=== PATIENT | male | born 1955 | race Caucasian/White ===

== ENCOUNTER 2024-04-21 11:09 | Inpatient (IN) | payer MEDICARE ==
[~2024-04-21] VITALS: Ht 190.5 cm; Wt 85.3 kg
[2024-04-21 11:18] VITALS: BP_SYST 178; PULSE 92; RESP 19; TEMP 97.9; O2SAT 97
[2024-04-21] MEDS: LORazepam 2 MG/ML VIAL IM ONE (11:37)
[2024-04-21] MEDS: HALOPERIDOL LACTATE 5 MG/ML VIAL IM ONE (11:38)
[2024-04-21] MEDS: DIPHENHYDRAMINE INJ 50 MG/ML VIAL IM ONE (11:38)
[2024-04-21 13:26] LABS: BASOPHILS % (AUTO) 0.4 % (0.0-2.0); EOSINOPHILS % (AUTO) 0.3 % (0.0-4.0); HEMATOCRIT 42.4 % (36-54); HEMOGLOBIN 14.6 g/dL (14.0-18.0); LYMPHOCYTES # (AUTO) 0.8 K/uL (1.0-5.5); LYMPHOCYTES % (AUTO) 7.9 % (20.5-51.5); MEAN CORPUSCULAR HEMOGLOBIN 30 pg (27-31); MEAN CORPUSCULAR HGB CONC 34 % (32-36); MEAN CORPUSCULAR VOLUME 87 fL (79.0-98.0); MONOCYTES # (AUTO) 0.8 K/uL (0.0-1.0); MONOCYTES % (AUTO) 8.1 % (1.7-9.3); NEUTROPHILS # (AUTO) 8.1 K/uL (1.8-7.7); NEUTROPHILS % (AUTO) 83.3 % (40.0-70.0); PLATELET COUNT (AUTO) 247 K/uL (130-430); RED CELL DISTRIBUTION WIDTH 13.6 % (9.0-15.0); WHITE BLOOD COUNT (AUTO) 9.7 K/uL (4.8-10.8)
[2024-04-21 13:39] LABS: ALANINE AMINOTRANSFERASE 21 U/L (12-78); ALBUMIN 3.9 g/dL (3.4-4.8); ANION GAP 12 (5-15); ASPARTATE AMINOTRANSFERASE 13 U/L (10-37); BILIRUBIN,DIRECT 0.2 mg/dL (0.0-0.3); CALCIUM 9.5 mg/dL (8.4-11.0); CARBON DIOXIDE 27 mmol/L (23-29); CHLORIDE 101 mmol/L (98-107); CREATININE 0.99 mg/dL (0.55-1.30); GFR AFRICAN AMERICAN 96 mL/min (>90); GLUCOSE 102 mg/dL (74-106); POTASSIUM 3.5 mmol/L (3.5-5.1); SODIUM SERUM 140 mmol/L (136-145); TOTAL BILIRUBIN 0.5 mg/dL (0.0-1.0); TOTAL PROTEIN, SERUM 7.5 g/dL (6.4-8.3); UREA NITROGEN, BLOOD 14 mg/dL (8-21)
[2024-04-21 13:41] LABS: GFR NON AFRICAN-AMERICAN 80 mL/min (>90)
[2024-04-21 13:42] LABS: ALCOHOL, BLOOD < 3 mg/dL (<10)
[2024-04-21] MEDS ORDERED: LEVO25TA7 PO (14:52)
[2024-04-21] MEDS ORDERED: LEVO200T8 PO (14:52)
[2024-04-21] MEDS ORDERED: ABIR250T2 PO (14:52)
[2024-04-21] MEDS ORDERED: PRED5TAB PO (14:52)
[2024-04-21 14:57] LABS: BARBITURATE, URINE NEGATIVE (NEG <=200); BENZODIAZEPINE, URINE NEGATIVE (NEG <=150); CANNABINOID, URINE POSITIVE (NEG <=50); COCAINE, URINE NEGATIVE (NEG <=150); METHAMPHETAMINES SCREEN,URINE NEGATIVE (NEG <=500); OPIATE, URINE NEGATIVE (NEG <=100); PHENCYCLIDINE SCREEN,URINE NEGATIVE (NEG <=25); UR TRICYCLIC ANTIDEPRESSANTS NEGATIVE (NEG <=300); URINE AMPHETAMINE NEGATIVE (NEG <=500); URINE METHADONE NEGATIVE (NEG <=200); URINE OXYCODONE SCREEN NEGATIVE (NEG <=100)
[2024-04-21 14:59] LABS: BILIRUBIN,URINE 2+ (NEGATIVE); CLARITY/URINE HAZY (CLEAR); COLOR,URINE YELLOW (YELLOW); GLUCOSE,URINE NEGATIVE (NEGATIVE); KETONES,URINE 2+ (NEGATIVE); PROTEIN URINE 2+ (NEGATIVE)
[2024-04-21 15:00] LABS: BACTERIA,URINE None Seen /HPF (None Seen); BLOOD, URINE NEGATIVE (NEGATIVE); LEUKOCYTE ESTERASE ,URINE NEGATIVE (NEGATIVE); NITRITE, URINE NEGATIVE (NEGATIVE); RBC,URINE NONE SEEN /HPF (0-3); WBC,URINE NONE SEEN /HPF (0-3)
[2024-04-21 15:01] LABS: CALCIUM OXALATE CRYSTALS,UR 0-10 /HPF (None Seen); HYALINE CASTS, URINE 0-10 /LPF (None Seen); MUCUS,URINE 3+ /LPF (None Seen)
[2024-04-21] MEDS ORDERED: LORazepam 2 MG/ML VIAL IVP PRN (18:45)
[2024-04-21] MEDS ORDERED: ONDANSETRON HCL 4 MG/2 ML VIAL IVP PRN (18:45)
[2024-04-21] MEDS ORDERED: ACETAMINOPHEN 325 MG TABLET PO PRN (18:45)
[2024-04-21] MEDS ORDERED: HYDROcodone/ACETAMIN 5-325 MG TAB (NORCO/ VICODIN) PO PRN (18:45)
[2024-04-21] MEDS ORDERED: HYDROcodone/ACETAMIN 10-325 MG TAB PO PRN (18:45)
[2024-04-21] MEDS ORDERED: ZOLPIDEM TARTRATE 5 MG TABLET PO PRN (21:00)
[2024-04-21 21:58] VITALS: BP_SYST 141; PULSE 61; RESP 18; TEMP 97.7
[2024-04-21 22:39] VITALS: O2SAT 98
[2024-04-22 01:30] VITALS: BP_SYST 134; PULSE 74; RESP 19; TEMP 97.6; O2SAT 97
[2024-04-22] MEDS: LEVOTHYROXINE SODIUM 0.1 MG TABLET PO SCH (06:14)
[2024-04-22 06:58] LABS: BASOPHILS # (AUTO) 0.1 K/uL (0.0-0.2); BASOPHILS % (AUTO) 1.1 % (0.0-2.0); EOSINOPHILS # (AUTO) 0.1 K/uL (0.0-0.4); EOSINOPHILS % (AUTO) 2.1 % (0.0-4.0); HEMATOCRIT 39.5 % (36-54); HEMOGLOBIN 13.6 g/dL (14.0-18.0); LYMPHOCYTES # (AUTO) 1.2 K/uL (1.0-5.5); LYMPHOCYTES % (AUTO) 21.8 % (20.5-51.5); MEAN CORPUSCULAR HEMOGLOBIN 30 pg (27-31); MEAN CORPUSCULAR HGB CONC 35 % (32-36); MEAN CORPUSCULAR VOLUME 86 fL (79.0-98.0); MONOCYTES # (AUTO) 0.7 K/uL (0.0-1.0); MONOCYTES % (AUTO) 12.3 % (1.7-9.3); NEUTROPHILS # (AUTO) 3.4 K/uL (1.8-7.7); NEUTROPHILS % (AUTO) 62.7 % (40.0-70.0); PLATELET COUNT (AUTO) 230 K/uL (130-430); RED BLOOD CELL COUNT(AUTO) 4.59 MIL/uL (4.2-6.2); RED CELL DISTRIBUTION WIDTH 13.5 % (9.0-15.0); WHITE BLOOD COUNT (AUTO) 5.4 K/uL (4.8-10.8)
[2024-04-22 07:41] LABS: CALCIUM 9.1 mg/dL (8.4-11.0); CREATININE 1.08 mg/dL (0.55-1.30); POTASSIUM 3.9 mmol/L (3.5-5.1)
[2024-04-22 08:00] VITALS: BP_SYST 134; PULSE 82; RESP 12; TEMP 97.9; O2SAT 97
[2024-04-22] MEDS: HEPARIN SODIUM,PORCINE 5,000 UNITS/ML VIAL SUBCUT SCH (08:41)
[2024-04-22 12:57] VITALS: BP_SYST 147; PULSE 75; RESP 18; TEMP 98.3; O2SAT 100
[2024-04-22 16:57] VITALS: BP_SYST 169; PULSE 70; RESP 16; TEMP 98.7; O2SAT 99
[2024-04-22] MEDS: hydrALAZINE HCL 25 MG TABLET PO ONE (17:44)
[2024-04-22] MEDS: predniSONE 5 MG TABLET PO STA (17:44)
[2024-04-22] MEDS: predniSONE 5 MG TABLET ONE (17:46)
[2024-04-22 18:43] VITALS: BP_SYST 157; PULSE 71; RESP 16; TEMP 98.1; O2SAT 100
[2024-04-22] MEDS ORDERED: hydrALAZINE HCL 25 MG TABLET PO PRN (20:15)
== END 2024-04-22 19:30 | disposition short-term general hospital (02) | DRG 71 ==
LOC: SED 11:09 → SMU 18:42
PROVIDERS: ADMIT Internal Medicine; ATTEND Internal Medicine
DX: G93.49 Other encephalopathy (principal); F31.2 Bipolar disorder, current episode manic severe with psychotic features; G47.00 Insomnia, unspecified; E03.9 Hypothyroidism, unspecified; Z85.46 Personal history of malignant neoplasm of prostate; Z79.899 Other long term (current) drug therapy; F12.959 Cannabis use, unspecified with psychotic disorder, unspecified
CPT/HCPCS: 36415; 70450-TC; 71045; 80048; 80076; 80307; 81000; 81001; 81015; 82140; 82948; 83037; 84484; 85025; 93005; 99285; G0482; J1200; J1630; J1644; J2060; J7512